=== PATIENT | female | born 1995 ===

== ENCOUNTER → 2020-06-17 10:49 | Outpatient (CLI) | payer OTHER | END | disposition home or self-care (01) | LOC: LAB 10:49 | PROVIDERS: ATTEND Emergency Medicine Pediatric Emergency Medicine | DX: Z20.828 Contact with and (suspected) exposure to other viral communicable diseases (principal); Z03.818 Encounter for observation for suspected exposure to other biological agents ruled out ==

== ENCOUNTER 2020-09-13 08:23 | Outpatient (CLI) | payer OTHER | END 2020-09-13 08:35 | disposition home or self-care (01) | LOC: TOM 08:23 | PROVIDERS: ATTEND Specialist | DX: R10.2 Pelvic and perineal pain (principal) ==